=== PATIENT | female | born 1970 | race Caucasian/White ===

== ENCOUNTER 2018-07-05 06:09 | Day surgery (SDC) | payer OTHER ==
[~2018-07-05] VITALS: Ht 167.6 cm; Wt 67.1 kg
[~2018-07-05 06:09] MED LIST: AMLO10TA2 PO; AMLO10TA5 PO; AUGM875T28 PO; DIFL200T PO; DOXY100C PO; ESCI10TA2 PO; ESCI5SOL3 PO; FOLI1TAB11 PO; FOLI5INJ2 SC; FOLITAB11 PO; GABA-845 PO; LEXA1TAB PO; MULT1TAB10 PO; MULTCAP8 PO; NICO21PAT TD; OXAZ10CA PO; OXAZ10CA3 PO; OXAZ15CA PO; PROT1TAB2 PO; QUET400T PO; THIA50CA PO; TRAZO50TA PO; TYLE325T5 PO; VITA100T2 PO; VITA100T60 PO; ZOLO50TA PO
[2018-07-05] MEDS ORDERED: LIDOCAINE 2% W/EPIN INJ 20ML **PRES FREE As Ordered ONE (06:35)
[2018-07-05] MEDS ORDERED: CIPROFLOXACIN 0.3% OPHTH OINTMENT As Ordered ONE (06:36)
[2018-07-05] MEDS ORDERED: LIDOCAINE 3.5 % 1ML OPHTH TOPICAL GEL OU ONE (07:00)
[2018-07-05] MEDS ORDERED: MIDAZOLAM INJ 2 MG/2 ML VIAL (J2250) As Ordered ONE (07:16)
[2018-07-05] MEDS ORDERED: fentaNYL 100 MCG/2 ML INJECTION (J3010) As Ordered ONE (07:16)
[2018-07-05] MEDS ORDERED: POVIDONE-IODINE 5% OPHTH PREP SOL 30ML As Ordered ONE (07:18)
[2018-07-05] MEDS ORDERED: ONDANSETRON 4MG/2ML VIAL (J2405) IV PRN (08:15)
[2018-07-05] MEDS ORDERED: ACETAMINOPHEN TAB 650MG DOSE (2X325MG) PO PRN (08:15)
[2018-07-05 08:35] VITALS: BP 148/63
--- NOTE | 2018-07-05 12:16 | RO ---
DATE OF PROCEDURE: 07/05/2018 PREPROCEDURE DIAGNOSIS: Lid lesion of left upper lid times two. POSTPROCEDURE DIAGNOSIS: Lid lesion of left upper lid times two. One lesion was a sebaceous cyst that was previously excised and had some scar tissue and the other one was xanthelasma. SURGEON: Dr. Ingram SHIP'S ENGINEER: ANESTHESIA: Local with sedation. DESCRIPTION OF PROCEDURE: The patient was prepped and draped in the usual fashion. 2% lidocaine with epinephrine was injected to the area to be excised after the larger upper lid lesion was marked with skin scribe. The other lesion was also infiltrated with local anesthesia. Cautery was used to cut along the inscribed marked area and then the piece of skin was removed from the area. There was no remaining cyst underlying the tissue. Bleeding was controlled with cautery. The wound was then closed using nine 6-0 nylon interrupted sutures, suture was placed into the edge of the brow to minimize scarring. The xanthelasma was then excised from the upper lid and any bleeding was controlled with cautery and two 6-0 nylon interrupted sutures were used to close that incision. THe patient tolerated the procedure well and went to the recovery room in stable condition.
== END 2018-07-05 08:40 | disposition home or self-care (01) ==
LOC: M SDC 06:09
PROVIDERS: ATTEND Ophthalmology
DX: H02.824 Cysts of left upper eyelid (principal); H02.64 Xanthelasma of left upper eyelid; I10 Essential (primary) hypertension; G47.30 Sleep apnea, unspecified; K76.9 Liver disease, unspecified; F43.10 Post-traumatic stress disorder, unspecified; F41.9 Anxiety disorder, unspecified; J44.9 Chronic obstructive pulmonary disease, unspecified; R87.810 Cervical high risk human papillomavirus (HPV) DNA test positive; F17.210 Nicotine dependence, cigarettes, uncomplicated; Z79.899 Other long term (current) drug therapy
CPT/HCPCS: 11440; 67840; 88305; J2250; J3010

== ENCOUNTER 2023-06-21 11:29 | Day surgery (SDC) | payer OTHER ==
[~2023-06-21] VITALS: Ht 165.1 cm; Wt 52.0 kg
[~2023-06-21 11:29] MED LIST changes: -AMLO10TA5 PO; +AMLO1TAB25 PO; +DILT120C31 PO; -DOXY100C PO; +DOXY100C3 PO; +DULO1CAP6 PO; +ESCI10TA16 PO; -ESCI10TA2 PO; +GABA-282 PO; +GABA-284 PO; -GABA-845 PO; +INCR1INH; -QUET400T PO; +QUET400T2 PO; +TRAZ1TAB10 PO; -TRAZO50TA PO; +VITA100093 PO
[2023-06-21] MEDS: LR 1,000 ML IV SCH (12:26)
[2023-06-21] MEDS ORDERED: ONDANSETRON 4MG 2ML VIAL As Ordered ONE (14:27)
[2023-06-21] MEDS ORDERED: MIDAZOLAM INJ 2MG/2ML VIAL As Ordered ONE (14:27)
[2023-06-21] MEDS ORDERED: LIDOCAINE 2% 100MG/5ML SDV (FOR ANES.) As Ordered ONE (14:27)
[2023-06-21] MEDS ORDERED: propofoL 200 MG/20 ML VIAL As Ordered ONE (14:27)
[2023-06-21] MEDS ORDERED: KETAMINE HCL 200MG/20ML VIAL As Ordered ONE (14:27)
[2023-06-21] MEDS: ceFAZolin SOD 2 GM in IV 1 EA IV ONE (15:40)
[2023-06-21] MEDS ORDERED: ACETAMINOPHEN 1000MG 100ML IV BAG As Ordered ONE (15:40)
[2023-06-21] MEDS: POVIDONE-IODINE 5% OPHTH PREP SOL 30ML As Ordered ONE (15:42)
[2023-06-21] MEDS: BACITRACIN OINTMENT 30GM TUBE As Ordered ONE (15:53)
[2023-06-21] MEDS: LIDOCAINE W/EPINEPHRINE 1% 20ML VIAL As Ordered ONE (16:00)
[2023-06-21 16:15] VITALS: BP 123/66; TEMP 96.9; O2SAT 99
== END 2023-06-21 16:37 | disposition home or self-care (01) ==
LOC: M SDC 11:29
PROVIDERS: ATTEND Plastic Surgery Surgery of the Hand
DX: L72.0 Epidermal cyst (principal); L57.8 Other skin changes due to chronic exposure to nonionizing radiation; I10 Essential (primary) hypertension; K76.0 Fatty (change of) liver, not elsewhere classified; F43.10 Post-traumatic stress disorder, unspecified; F41.9 Anxiety disorder, unspecified; F32.A Depression, unspecified; J44.9 Chronic obstructive pulmonary disease, unspecified; Z79.899 Other long term (current) drug therapy; F17.200 Nicotine dependence, unspecified, uncomplicated; F12.10 Cannabis abuse, uncomplicated
CPT/HCPCS: 11441; 88305; J0131; J0690; J1100; J2250; J2405

== ENCOUNTER → 2024-06-01 | Outpatient (CLI) | payer OTHER ==
[~2024-06-01] MED LIST changes: +GABA-1172 PO; -GABA-282 PO
== END ==
LOC: M EKG 09:19
PROVIDERS: ATTEND Physician Assistant
DX: I47.10 Supraventricular tachycardia, unspecified (principal); Z53.9 Procedure and treatment not carried out, unspecified reason

== ENCOUNTER → 2024-06-26 | Outpatient (CLI) | payer OTHER | LOC: M CARPUL 09:16 | PROVIDERS: ATTEND Physician Assistant | DX: R07.2 Precordial pain (principal); R06.02 Shortness of breath ==